=== PATIENT | male | born 1950 | race Caucasian/White ===

== ENCOUNTER → 2021-03-10 17:17 | Outpatient (CLI) | payer BC, SELFPAY ==
[2021-03-10 18:13] LABS: Prothrombin Time 78.3 SECONDS (10.1-12.7)
[2021-03-10 18:26] LABS: INR 6.5 (0.9-1.3)
== END ==
PROVIDERS: Family Provider Family Medicine; PCP Family Medicine; Referring Provider Family Medicine; Visit Provider Family Medicine
DX: R79.1 Abnormal coagulation profile (principal); Z79.01 Long term (current) use of anticoagulants
CPT/HCPCS: 36415; 85610

== ENCOUNTER 2021-04-09 09:27 | Emergency (ER) | payer BC, SELFPAY ==
[2021-04-09] VITALS (9 sets, daily range): BP systolic 98–126; BP diastolic 68–82; PULSE 56–63; RESP 13–31; TEMP 36.7; O2SAT 98–99; BMI 30.5
--- NOTE | 2021-04-09 10:02 | DI.US.S_ITS ---
PROCEDURE: US PERIPH VENOUS LOW EXTREM LT INDICATIONS: THIGH CRAMP; HX DVT TECHNIQUE: Real-time imaging, as well as color and pulse Doppler interrogation, were performed of the lower extremity deep veins from the inguinal ligament to the popliteal fossa. COMPARISON: [facility], PVE UNILATERAL LEFT, 12/14/2015, 19:41. [facility], PVE UNILATERAL LEFT, 09/13/2016, 18:32. FINDINGS: A small amount of partially occlusive deep venous thrombosis can be seen involving the popliteal vein. No other findings of deep venous thrombosis can be seen. IMPRESSION: A small amount of nonocclusive deep venous thrombosis can be seen at the level of the popliteal vein, which is most likely chronic in nature. Please note that isolated left popliteal deep venous thrombosis has been previously seen on prior imaging. Dictated by: Ananth Rainey M.D. on 04/09/2021 at 9:42 Approved by: Ananth Rainey M.D. on 04/09/2021 at 9:45
[2021-04-09 10:35] LABS: INR 3.5 (0.9-1.3); Prothrombin Time 40.5 SECONDS (10.1-12.7)
--- NOTE | 2021-04-09 11:46 | ED.EXTPRO ---
HPI - Extremity Problem General Chief complaint: Extremity Problem,Nontraumatic Stated complaint: LT LEG CRAMPS/POSS DVT? Time Seen by Provider: 04/09/21 11:37 Source: patient Mode of arrival: Ambulatory Limitations: no limitations History of Present Illness HPI Narrative: This is a 70-year-old male comes with left leg cramping concern for DVT. Patient has a history DVT in the past. He states it was provoked from daily drive to [place] for work. He had a large pulmonary emboli. Since then he has been on warfarin. He was therapeutic as of Monday. Patient comes in today is he woke up last night with cramping in his left lower extremity, he has feet states he felt a sensation of some tingling down the left outer leg and cramping or dull aching on the inner thigh running from the knee to the groin. Patient has not had a skin changes. He states his left leg is always some slightly more swollen than the right. He denies any weakness or numbness. Patient denies any chest pain or pressure, no shortness of breath. No syncope. No nausea, no vomiting, no other GI or urinary symptoms. 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 HEENT: Head normocephalic, atraumatic, EOMI, pupils reactive, face symmetric, moist mucous membranes NECK: Supple, full range of motion CARDIOVASCULAR: Regular rate and rhythm without murmurs, rubs or gallops. RESPIRATORY: Breath sounds equal bilaterally, no wheezes rales or rhonchi. ABDOMEN: Soft, nontender. Normoactive bowel sounds all 4 quadrants. No guarding or rebound, rigidity, no mass : No CVA tenderness EXTREMITIES: Normal range of motion, no clubbing, patient has mild edema with obvious lines and his socks bilaterally. Left lower extremity is slightly more swollen than the right. Nontender. No warmth, erythema or skin changes. Patient has 5/5 muscle strength. Normal straight leg raise bilaterally. 2+ dorsalis pedis bilaterally. Sensation intact bilateral lower extremities. Neurovascularly intact NEUROLOGICAL: Cranial nerves II through XII grossly intact. Moving all extremities SKIN: Warm, dry, no petechiae, no rashes or lesions. Initial Vital Signs Initial Vital Signs: Vital Signs Temperature 98.1 F 04/09/21 09:50 Pulse Rate 61 04/09/21 09:50 Respiratory Rate 13 04/09/21 09:50 Blood Pressure 126/69 04/09/21 09:50 Pulse Oximetry 98 04/09/21 09:50 Course Orders Ordered: ED Orders 04/09/21 10:02 US periph venous low extrem lt Stat 04/09/21 10:20 PT [Prothrombin Time INR] Stat Vital Signs Vital signs: Vital Signs - 8 hr 04/09/21 11:00 04/09/21 11:30 04/09/21 12:00 Pulse Rate 56 L 56 L 63 Respiratory Rate 21 17 Blood Pressure 99/68 98/70 Pulse Oximetry 98 99 98 04/09/21 12:01 Pulse Rate 56 L Respiratory Rate Blood Pressure 114/71 Pulse Oximetry 99 MDM - Extremity (Nontraumatic) Lab Data Labs: Lab Results 04/09/21 Range/Units 10:20 PT 40.5 H (10.1-12.7) SECONDS INR 3.5 H (0.9-1.3) Imaging Data US - DVT: Radiologist's Impression: [address] [id number] ReportSigned Patient: Clifton Cooper CMR#: [id number]: [id number]:[id number]/Sex: 70 / MDate of Service: 04/09/21Loc: EDAccession Number: [id number] Procedure: US periph venous low extrem lt Ordering Provider: Marj Godfrey D.O. PROCEDURE: US PERIPH VENOUS LOW EXTREM LT INDICATIONS: THIGH CRAMP; HX DVT TECHNIQUE: Real-time imaging, as well as color and pulse Doppler interrogation, were performed of the lower extremity deep veins from the inguinal ligament to the popliteal fossa. COMPARISON: [facility], PVE UNILATERAL LEFT, 12/14/2015, 19:41. [facility], PVE UNILATERAL LEFT, 09/13/2016, 18:32. FINDINGS: A small amount of partially occlusive deep venous thrombosis can be seen involving the popliteal vein. No other findings of deep venous thrombosis can be seen. IMPRESSION: A small amount of nonocclusive deep venous thrombosis can be seen at the level of the popliteal vein, which is most likely chronic in nature. Please note that isolated left popliteal deep venous thrombosis has been previously seen on prior imaging. Dictated by: Ananth Rainey M.D. on 04/09/2021 at 9:42 Approved by: Ananth Rainey M.D. on 04/09/2021 at 9:45 MDM Narrative Medical decision making narrative: This is a 70-year-old male who comes emergency department with complaint of leg cramps when concern for left-sided DVT patient had prior in that lower extremity. He is on Coumadin. He is therapeutic today there is a small amount of nonocclusive thrombus appreciated and patient has had thrombus at that location and is suspected to be chronic in nature and not new reaccumulation. All questions answered. Return precautions discussed Discharge Plan Departure Patient Disposition: Home Clinical Impression: Cramps of left lower extremity Activity Restrictions/Additional Instructions: Follow-up with your physician for recheck if your symptoms are not improving. Your ultrasound does show a small amount of nonocclusive clot in the popliteal vein, this appears to likely be chronic and there was clot present in this area in the past. Your INR today is 3.5 Please return if you have chest pain, shortness of breath, lightheadedness or passing out, diaphoresis, rapidly worsening pain in her legs, swelling, new skin changes or other new or concerning symptoms. Prescriptions: No Action warfarin [Coumadin] 5 MG tablet 0 PO SEE INSTRUCTIONS Qty: 130 RF: 0 Referrals: Christoph Dhillon MD [Primary Care Provider] -
== END 2021-04-09 12:35 | disposition home or self-care (01) ==
PROVIDERS: Emergency Provider Emergency Medicine; Family Provider Family Medicine; PCP Family Medicine
DX: R25.2 Cramp and spasm (principal); Z79.01 Long term (current) use of anticoagulants
CPT/HCPCS: 36415; 85610; 93971; 99283; 99284

== ENCOUNTER → 2022-03-16 09:41 | Outpatient (CLI) | payer MEDICARE, SELFPAY ==
[2022-03-16 10:25] LABS: COVID19 -Nasal RAPID Negative (Negative)
== END ==
PROVIDERS: Family Provider Family Medicine; PCP Pediatrics; Referring Provider Pediatrics; Visit Provider Pediatrics
DX: Z20.822 Contact with and (suspected) exposure to COVID-19 (principal)
CPT/HCPCS: 87635; C9803

== ENCOUNTER → 2023-01-23 11:37 | Outpatient (CLI) | payer OTHER, MEDICARE, SELFPAY ==
[2023-01-23 12:49] LABS: Add Manual Diff / Slide Review NO; Basophils Absolute Auto 100 /uL (0-100); Basophils Percent Auto 0.9 % (0-2); Eosinophils Absolute Auto 300 /uL (0-450); Eosinophils Percent Auto 3.5 % (2-4); Hematocrit 41.2 % (41-53); Hemoglobin 13.9 g/dL (13.5-17.5); Lymphocytes Absolute Auto 3100 /uL (1100-4500); Lymphocytes Percent Auto 42.4 % (25-40); Mean Corpuscular HGB Conc 33.7 % (30-36); Mean Corpuscular Hemoglobin 30.4 PG (26-34); Mean Corpuscular Volume 90.2 fL (80-100); Monocytes Absolute Auto 700 /uL (0-900); Monocytes Percent Auto 9.4 % (3-14); Neutrophils Absolute Auto 3200 /uL (1500-7000); Neutrophils Percent Auto 43.8 % (50-75); Platelet Count 238 X10^3/uL (150-400); Red Blood Cell Count 4.56 X10^6/uL (4.5-5.9); Red Cell Distribution Width 14.4 % (11.6-14.8); White Blood Cell Count 7.4 X10^3/uL (4.5-11.0)
[2023-01-23 13:25] LABS: Alanine Aminotransferase 30 IU/L (<50); Albumin 3.8 g/dL (3.5-5.0); Albumin Globulin Ratio 1.3 (1.0-2.8); Alkaline Phosphatase 92 U/L (38-126); Aspartate Aminotransferase 31 IU/L (17-59); BUN Creatinine Ratio 18.8 (6-22); Bilirubin Total 0.6 mg/dL (0.2-1.3); Blood Urea Nitrogen 18 mg/dL (9-20); Calcium 8.7 mg/dL (8.4-10.2); Carbon Dioxide 26 mmol/L (22-32); Chloride 104 mmol/L (98-107); Cholesterol 214 mg/dL (140-199); Estimated Glomerular Filt Rate > 60 mL/min (>60); Glucose 92 mg/dL (80-110); HDL Cholesterol 34 mg/dL (40-60); LDL Cholesterol Calculated 142 mg/dL (<100); Potassium 4.5 mmol/L (3.4-5.1); Sodium 136 mmol/L (137-145); Total Protein 6.8 g/dL (6.3-8.2); Triglycerides 189 mg/dL (35-150)
[2023-01-23 13:57] LABS: HEMOLYSIS < 15 (0-50)
[2023-01-23 13:58] LABS: Prostate Specific Antigen Scrn < 0.064 ng/mL (0.1-4.0)
== END ==
PROVIDERS: Family Provider Family Medicine; PCP Pediatrics; Referring Provider Family Medicine; Visit Provider Family Medicine
DX: Z00.00 Encounter for general adult medical examination without abnormal findings (principal); Z12.11 Encounter for screening for malignant neoplasm of colon; C61 Malignant neoplasm of prostate; D50.9 Iron deficiency anemia, unspecified; I10 Essential (primary) hypertension; Z12.5 Encounter for screening for malignant neoplasm of prostate
CPT/HCPCS: 36415; 80053; 80061; 85025; G0103

== ENCOUNTER → 2023-03-17 15:27 | Outpatient (CLI) | payer OTHER, MEDICARE, SELFPAY ==
[2023-03-17 17:33] LABS: Prothrombin Time 95.1 SECONDS (10.1-12.7)
[2023-03-17 19:03] LABS: INR 8.1 (0.9-1.3)
== END ==
PROVIDERS: Family Provider Family Medicine; PCP Pediatrics; Referring Provider Pediatrics; Visit Provider Pediatrics
DX: I82.409 Acute embolism and thrombosis of unspecified deep veins of unspecified lower extremity (principal)
CPT/HCPCS: 36415; 85610

== ENCOUNTER → 2024-03-11 12:07 | Outpatient (CLI) | payer OTHER, MEDICARE, SELFPAY ==
[2024-03-11 12:47] LABS: Hematocrit 43.3 % (41-53); Hemoglobin 14.6 g/dL (13.5-17.5); Mean Corpuscular HGB Conc 33.6 % (30-36); Mean Corpuscular Hemoglobin 30.9 PG (26-34); Platelet Count 204 X10^3/uL (150-400); Red Blood Cell Count 4.71 X10^6/uL (4.5-5.9); Red Cell Distribution Width 14.2 % (11.6-14.8); White Blood Cell Count 7.8 X10^3/uL (4.5-11.0)
[2024-03-11 13:14] LABS: Alanine Aminotransferase 22 IU/L (<50); Albumin Globulin Ratio 1.4 (1.0-2.8); Alkaline Phosphatase 84 U/L (38-126); Aspartate Aminotransferase 30 IU/L (17-59); BUN Creatinine Ratio 11.4 (6-22); Bilirubin Total 0.6 mg/dL (0.2-1.3); Blood Urea Nitrogen 12 mg/dL (9-20); Calcium 8.7 mg/dL (8.4-10.2); Carbon Dioxide 26 mmol/L (22-32); Chloride 108 mmol/L (98-107); Cholesterol 223 mg/dL (140-199); Estimated Glomerular Filt Rate > 60 mL/min (>60); Globulin 2.9 g/dL (1.7-4.1); Glucose 101 mg/dL (80-110); HDL Cholesterol 41 mg/dL (40-60); HEMOLYSIS < 15 (0-50); LDL Cholesterol Calculated 159 mg/dL (<100); Potassium 4.7 mmol/L (3.4-5.1); Sodium 139 mmol/L (137-145); Total Protein 6.9 g/dL (6.3-8.2); Triglycerides 117 mg/dL (35-150)
[2024-03-11 13:44] LABS: Prostate Specific Antigen < 0.064 ng/mL (0.10-4.00)
[2024-03-11 14:08] LABS: Hemoglobin A1C% w Est Avg Glu 5.6 % (4.0-6.0)
[2024-03-11 17:22] LABS: Hep C Virus Ab w/Reflex Quant NEGATIVE s/c (NEGATIVE)
== END ==
LOC: LAB 12:08
PROVIDERS: Family Provider Family Medicine; PCP Family Medicine; Referring Provider Family Medicine; Visit Provider Family Medicine
DX: Z00.00 Encounter for general adult medical examination without abnormal findings (principal); I10 Essential (primary) hypertension; E78.5 Hyperlipidemia, unspecified; Z79.01 Long term (current) use of anticoagulants; Z85.46 Personal history of malignant neoplasm of prostate; R06.09 Other forms of dyspnea; Z11.59 Encounter for screening for other viral diseases; E66.9 Obesity, unspecified
CPT/HCPCS: 36415; 80053; 80061; 83036; 84153; 85027; 86803

== ENCOUNTER → 2024-12-02 07:49 | Outpatient (CLI) | payer OTHER, MEDICARE, SELFPAY ==
[2024-12-02 08:39] LABS: INR 3.2 (0.9-1.3); Prothrombin Time 35.4 SECONDS (9.4-12.5)
== END ==
LOC: LAB 07:51
PROVIDERS: Family Provider Family Medicine; PCP Family Medicine; Referring Provider Family Medicine; Visit Provider Family Medicine
DX: Z79.01 Long term (current) use of anticoagulants (principal); Z87.74 Personal history of (corrected) congenital malformations of heart and circulatory system; Z86.711 Personal history of pulmonary embolism; Z86.74 Personal history of sudden cardiac arrest; Z95.828 Presence of other vascular implants and grafts; I26.02 Saddle embolus of pulmonary artery with acute cor pulmonale; I26.92 Saddle embolus of pulmonary artery without acute cor pulmonale
CPT/HCPCS: 36415; 85610

== ENCOUNTER → 2024-12-09 09:48 | Outpatient (CLI) | payer OTHER, MEDICARE, SELFPAY ==
[2024-12-09 11:08] LABS: Alanine Aminotransferase 25 IU/L (<50); Albumin 4.3 g/dL (3.5-5.0); Albumin Globulin Ratio 1.4 (1.0-2.8); Alkaline Phosphatase 83 U/L (38-126); Aspartate Aminotransferase 40 IU/L (17-59); BUN Creatinine Ratio 20.8 (6-22); Bilirubin Total 0.5 mg/dL (0.2-1.3); Blood Urea Nitrogen 22 mg/dL (9-20); Calcium 8.9 mg/dL (8.4-10.2); Carbon Dioxide 25 mmol/L (22-32); Chloride 109 mmol/L (98-107); Cholesterol 216 mg/dL (140-199); Estimated Glomerular Filt Rate > 60 mL/min (>60); Globulin 3.1 g/dL (1.7-4.1); Glucose 106 mg/dL (80-110); HDL Cholesterol 35 mg/dL (40-60); HEMOLYSIS < 15 (0-50); LDL Cholesterol Calculated 166 mg/dL (<100); Potassium 4.6 mmol/L (3.4-5.1); Sodium 140 mmol/L (137-145); Total Protein 7.4 g/dL (6.3-8.2); Triglycerides 76 mg/dL (35-150)
[2024-12-09 11:35] LABS: Prostate Specific Antigen Scrn < 0.064 ng/mL (0.1-4.0)
== END ==
PROVIDERS: Family Provider Family Medicine; PCP Family Medicine; Referring Provider Family Medicine; Visit Provider Family Medicine
DX: Z00.00 Encounter for general adult medical examination without abnormal findings (principal); E78.5 Hyperlipidemia, unspecified; I10 Essential (primary) hypertension; Z12.5 Encounter for screening for malignant neoplasm of prostate
CPT/HCPCS: 36415; 80053; 80061; G0103